=== PATIENT | female | born 1980 | race Caucasian/White ===

== ENCOUNTER 2021-11-20 08:47 | Emergency (ER) | payer MEDICAID ==
[~2021-11-20] VITALS: Ht 160 cm; Wt 75.0 kg
[2021-11-20 08:52] VITALS: BP 110/71
--- NOTE | 2021-11-20 10:09 | NUR ---
not in lobby
--- NOTE | 2021-11-20 10:21 | NUR ---
pt seen leaving the er by staff
== END 2021-11-22 09:17 | disposition left against medical advice (07) ==
LOC: ER 08:47
DX: M79.645 Pain in left finger(s) (principal); Z53.21 Procedure and treatment not carried out due to patient leaving prior to being seen by health care provider

== ENCOUNTER 2024-10-12 09:46 | Emergency (ER) | payer SELFPAY ==
[~2024-10-12] VITALS: Ht 160 cm; Wt 74.1 kg
[2024-10-12 09:59] VITALS: BP 150/77; PULSE 107; TEMP 99.7; O2SAT 99
[2024-10-12] MEDS: ketorolac trometh 30MG/ML vial 30 MG/ML VIAL IM ONE (10:51)
[2024-10-12] MEDS ORDERED: HYDR-3965 PO (11:05)
[2024-10-12] MEDS: HYDROcodone/acetaminophen 10/325mg tab PO ONE (11:18)
[2024-10-12 11:45] VITALS: RESP 16
== END 2024-10-12 11:47 | disposition home or self-care (01) ==
LOC: ER 09:47
DX: S82.832A Other fracture of upper and lower end of left fibula, initial encounter for closed fracture (principal); X50.1XXA Overexertion from prolonged static or awkward postures, initial encounter; Y93.89 Activity, other specified; Y92.89 Other specified places as the place of occurrence of the external cause; Y99.8 Other external cause status
CPT/HCPCS: 29515; 73610; 96372; 99283; J1885; A6446; A6449